=== PATIENT | male | born 1965 | race Caucasian/White ===

== ENCOUNTER 2016-11-23 13:29 | Emergency (ER) | payer OTHER ==
[~2016-11-23] VITALS: Ht 177.8 cm; Wt 93.2 kg
[2016-11-23] MEDS ORDERED: PHEN100C23 PO (13:42)
[2016-11-23] MEDS ORDERED: FAMO20 PO (13:42)
[2016-11-23] MEDS ORDERED: LEVE500T53 PO (13:42)
[2016-11-23 14:24] VITALS: BP 130/86
== END 2016-11-23 14:43 | disposition home or self-care (01) ==
LOC: EEVIPCON 13:32 → EMS 13:32
DX: F41.9 Anxiety disorder, unspecified (principal)
CPT/HCPCS: 99285